=== PATIENT | male | born 1980 | race African-American/Black ===

== ENCOUNTER 2017-04-13 16:43 | Emergency (ER) | payer SELFPAY ==
[~2017-04-13] VITALS: Ht 188 cm; Wt 149.5 kg
[2017-04-13 16:44] VITALS: BP 162/88; PULSE 116; RESP 20; TEMP 99.4; O2SAT 98
--- NOTE | 2017-04-13 16:59 | PD ---
Physical Exam Date Seen by Provider: Apr 13, 2017 Time Seen by Provider: 16:57 Narrative 36 YOBM C/O 10 ABSCESS IN R GROIN. PAIN 06/07. NO DM VS REVIEWED WAITING FOR BED PLACEMENT Data Data Last Documented VS Vital Signs Date Time Temp Pulse Resp B/P Pulse Ox O2 Delivery O2 Flow Rate FiO2 04/13/17 16:44 99.4 116 20 162/88 98 Room Air MDM Supervised Visit with JOHANN: Saran Bunn Apr 13, 2017 16:58
[2017-04-13 18:06] VITALS: PULSE 96
--- NOTE | 2017-04-13 18:09 | PD ---
HPI Chief Complaint: Skin Problem Time Seen by Provider: 18:07 Travel History International Travel<30 days: No Contact w/Intl Traveler<30days: No Traveled to known affect area: No History of Present Illness HPI 36-year-old male presents emergency Department with complaint of an abscess to his right groin area 10 days. Denies fever, vomiting. Says he pulled a hair from the area today with a small amount of purulent drainage noted. Denies penile drainage, dysuria. Denies testicular pain, swelling. Has no other medical complaints. Symptoms are mild in severity. No known allergies. No other modifying factors or associated signs and symptoms. PFSH Social History Tobacco Use: No Allergies-Medications (Allergen,Severity, Reaction): Coded Allergies: No Known Allergies (Unverified , 04/13/17) Reported Meds & Prescriptions Reported Meds & Active Scripts Active Ibuprofen 800 Mg Tab 800 Mg PO Q6HR PRN Bactrim DS (Sulfamethoxazole-Trimethoprim) 800-160 Mg Tab 1 Tab PO BID 10 Days Clindamycin (Clindamycin HCl) 150 Mg Cap 450 Mg PO Q6H 10 Days Review of Systems Except as stated in HPI: all other systems reviewed are Neg Physical Exam Narrative GENERAL: Well-nourished, well-developed male patient, in no acute distress; afebrile, nontoxic-appearing SKIN: There is an indurated area to the right groin which measures about 4 cm in diameter. It is fluctuant and there is a pinpoint area of pointing and drainage noted. There is a zone of inflammation around it but no lymphangitis. No groin lymphadenopathy. HEAD: Atraumatic. Normocephalic. EYES: Pupils equal and round. No scleral icterus. No injection or drainage. ENT: Mucosa pink and moist. Airway patent. NECK: Trachea midline. CARDIOVASCULAR: Regular rate. RESPIRATORY: No accessory muscle use. GASTROINTESTINAL: Obese. MUSCULOSKELETAL: No obvious deformities. No clubbing. No cyanosis. No edema. NEUROLOGICAL: Awake and alert. Oriented 3. No obvious cranial nerve deficits. Motor grossly within normal limits. Normal speech. PSYCHIATRIC: Appropriate mood and affect; insight and judgment normal. Data Data Last Documented VS Vital Signs Date Time Temp Pulse Resp B/P Pulse Ox O2 Delivery O2 Flow Rate FiO2 04/13/17 18:06 96 04/13/17 16:44 99.4 20 162/88 98 Room Air Orders Clindamycin Inj (Cleocin Inj) (04/13/17 18:15) Sulfamet-Trimeth Ds 800-160 Mg (Bactrim (04/13/17 18:15) Wound Culture And Gram Stain (04/13/17 18:09) Lidocaine 1% Inj (50 Ml) (Xylocaine 1% I (04/13/17 18:15) MDM Medical Decision Making Medical Screen Exam Complete: Yes Emergency Medical Condition: Yes Medical Record Reviewed: Yes Differential Diagnosis Abscess, folliculitis, cellulitis Narrative Course 36-year-old male with an abscess to the right groin area. See my procedure note for incision and drainage. Clindamycin 600 mg IM and Bactrim administered in the ER. Ibuprofen, Clindamycin and Bactrim prescribed for home. Instructed patient to return to the emergency department in 48 hours for abscess packing removal. Instructed patient to follow up with primary care provider. Patient verbalizes understanding and agreement with treatment plan. Patient is medically cleared and stable for discharge. Discussed reasons to return to the emergency department. Patient agrees with treatment plan. The patients vital signs are stable and the patient is stable for outpatient follow-up and treatment. Patient discharged home, stable and in no acute distress. Procedures Procedure Narrative INCISION AND DRAINAGE OF ABSCESS: The area was prepped and was sterilely draped. A subcutaneous wheal of 1 % Xylocaine with a total number 3 mL was used to anesthetize the area properly. A number 11 scalpel was used to make a 1 -cm incision across the area of the abscess. The abscess was drained, complex loculations were broken down, and irrigated with normal saline. Cultures were obtained. Quarter inch iodoform packing was placed in the wound. Sterile dressing applied. Patient advised to have packing removed in two days. Diagnosis Primary Impression: Abscess of groin, right Referrals: [facility] Primary Care Physician Patient Instructions: Abscess (ED), Abscess Follow-up (ED), Abscess Incision and Drainage (ED), General Instructions Departure Forms: Tests/Procedures, Work Release Enter return to work date: Apr 16, 2017 Additional Instructions: Complete full course of antibiotics Warm compresses to the affected area Keep area clean and dry Ibuprofen or Tylenol as directed and as needed for pain and inflammation Follow-up primary care provider or return to the emergency department in 48 hours for abscess packing removal and abscess recheck Follow-up with primary care provider Return to emergency department immediately with worsening of symptoms Med/Other Pt SpecificInfo: Prescription(s) given Scripts Ibuprofen 800 Mg Qxp194 Mg PO Q6HR PRN (PAIN) #30 TAB Ref 0 Prov:Yolanda Foster 04/13/17 Sulfamethoxazole-Trimethoprim (Bactrim DS)800-160 Mg Tab1 Tab PO BID 10 Days Ref 0 Prov:Yolanda Foster 04/13/17 Clindamycin 150 Mg [id number] Mg PO Q6H 10 Days Ref 0 Prov:Yolanda Foster 04/13/17 Disposition: 01 DISCHARGE HOME Condition: Stable Yolanda Foster Apr 13, 2017 18:09
[2017-04-13] MEDS ORDERED: CLIN1CAP5 PO (18:11)
[2017-04-13] MEDS ORDERED: BACT800T5 PO (18:11)
[2017-04-13] MEDS ORDERED: IBUP800T23 PO (18:11)
[2017-04-13] MEDS ORDERED: LIDOCAINE HCL 1% 50 ML VIAL INFIL ONE (18:15)
[2017-04-13] MEDS ORDERED: SULFAMETHOXAZOLE-TRIMETHOPRIM DS 800-160 MG TAB PO ONE (18:15)
[2017-04-13] MEDS ORDERED: CLINDAMYCIN PHOS 600 MG/4 ML VIAL IM ONE (18:15)
== END 2017-04-13 18:50 | disposition home or self-care (01) ==
LOC: NEPK 16:43
DX: L02.214 Cutaneous abscess of groin (principal)
CPT/HCPCS: 86403; 87070; 87186; 87205; 96372